=== PATIENT | female | born 1990 | race Caucasian/White ===

== ENCOUNTER → 2017-08-19 | Outpatient (CLI) | payer BC | LOC: FIMAGING 07:47 | DX: O36.5920 Maternal care for other known or suspected poor fetal growth, second trimester, not applicable or unspecified (principal); Z3A.19 19 weeks gestation of pregnancy; Z87.59 Personal history of other complications of pregnancy, childbirth and the puerperium ==

== ENCOUNTER → 2017-09-16 | Outpatient (CLI) | payer BC | LOC: FIMAGING 08:10 | DX: O36.5920 Maternal care for other known or suspected poor fetal growth, second trimester, not applicable or unspecified (principal); O26.02 Excessive weight gain in pregnancy, second trimester; Z3A.23 23 weeks gestation of pregnancy ==

== ENCOUNTER → 2017-09-21 | Outpatient (CLI) | payer BC | LOC: FIMAGING 10:07 | DX: O36.5920 Maternal care for other known or suspected poor fetal growth, second trimester, not applicable or unspecified (principal); O28.3 Abnormal ultrasonic finding on antenatal screening of mother; Z3A.24 24 weeks gestation of pregnancy ==